=== PATIENT | male | born 1950 | race Caucasian/White ===

== ENCOUNTER 2019-06-08 21:03 | Emergency (ER) | payer MEDICARE, OTHER ==
[~2019-06-08] VITALS: Ht 177.8 cm; Wt 108.9 kg
[2019-06-08] MEDS ORDERED: LEVEMIR SUBQ (21:16)
[2019-06-08] MEDS ORDERED: CRESTOR20 MG PO (21:17)
[2019-06-08] MEDS ORDERED: DIGOXIN250 MCG PO (21:17)
[2019-06-08] MEDS ORDERED: NORVASC5 MG PO (21:17)
[2019-06-08] MEDS ORDERED: ZYLOPRIM300 MG PO (21:18)
[2019-06-08] MEDS ORDERED: MOBIC15 MG PO (21:18)
[2019-06-08] MEDS ORDERED: JANUVIA 50 MG T50 M1 PO (21:18)
[2019-06-08] MEDS ORDERED: COREG25 MG PO (21:19)
[2019-06-08] MEDS ORDERED: ENTRESTO 49 MG1 EACH PO (21:19)
[2019-06-08] MEDS ORDERED: METFORMIN HCL500 MG PO (21:19)
[2019-06-08] MEDS ORDERED: AMARYL4 MG PO (21:19)
[2019-06-08] MEDS ORDERED: LASIX 40 MG TAB40 M2 PO (21:20)
[2019-06-08] MEDS ORDERED: TRAMADOL 50 MG50 MG PO (21:20)
[2019-06-08] MEDS ORDERED: NITROGLYCERIN0.4 MG SUBLING (21:20)
[2019-06-08] MEDS ORDERED: COUMADIN 5 MG TA5 M1 PO (21:20)
[2019-06-08] MEDS ORDERED: FOLIC ACID1 MG PO (21:21)
[2019-06-08] MEDS ORDERED: COQ-10100 MG PO (21:21)
[2019-06-08] MEDS ORDERED: MULTIVITAMINS1 EAC7 PO (21:22)
[2019-06-08] MEDS ORDERED: VITAMIN B-12500 MCG PO (21:23)
[2019-06-08] MEDS ORDERED: KRILL OIL 1,001 EAC1 PO (21:23)
[2019-06-08] MEDS ORDERED: [UNRECOGNIZED DRUG - OTHER] PO (21:24)
[2019-06-08] MEDS ORDERED: MAGOX 400400 MG PO (21:24)
[2019-06-08] MEDS ORDERED: OSTEO BI-FLEX1 EAC1 PO (21:24)
[2019-06-08] MEDS ORDERED: COLACE100 MG PO (21:25)
[2019-06-08 21:55] LABS: INR 2.3; PROTIME 22.7 Seconds (9.20-11.50)
[2019-06-08 23:57] VITALS: BP 154/80
== END 2019-06-08 23:59 | disposition home or self-care (01) ==
LOC: M.ERS 21:03
PROVIDERS: Nurse Practitioner Family
DX: S01.01XA Laceration without foreign body of scalp, initial encounter (principal); W01.198A Fall on same level from slipping, tripping and stumbling with subsequent striking against other object, initial encounter; Y92.89 Other specified places as the place of occurrence of the external cause; Y93.89 Activity, other specified; Y99.8 Other external cause status